=== PATIENT | female | born 2005 | race Two or more races ===

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

== ENCOUNTER 2024-09-22 16:09 | Inpatient (IN) | payer BC ==
[2024-09-22] MEDS: LACTATED RINGERS 1,000 ML IV SCH (16:15)
[2024-09-22] MEDS: LIDOCAINE 0.5% (PF) 5 MG/ML (50 ML SDV) SQ PRN (16:35)
[2024-09-22] MEDS ORDERED: OXYTOCIN 10 UNIT/ML 1 ML VIAL IM PRN (16:39)
[2024-09-22] MEDS ORDERED: CARBOPROST TROMETHAMINE 250 MCG/ML 1 ML AMP IM PRN (16:39)
[2024-09-22] MEDS ORDERED: TRANEXAMIC 1,000 MG/100ML-NACL 1,000 MG in EMPTY BAG 1 BAG IV PRN (16:39)
[2024-09-22] MEDS ORDERED: TERBUTALINE 1 MG/ML VIAL SQ PRN (16:39)
[2024-09-22] MEDS ORDERED: METHYLERGONOVINE 0.2 MG/ML 1 ML AMP IM PRN (16:39)
--- NOTE | 2024-09-22 16:55 | P.HPOB ---
History of Present Illness H&P Date: 09/22/24 Chief Complaint: Contractions Ms. Peterson is a 18 year old at 38 weeks and 0 days with EDC of 10-06-2024 by 18 week US who presents to labor in delivery completely dilated with ruptured membranes. SROM was at approximately 1500 with clear amniotic fluid. The has been complicated by limited care, heavy alcohol use in early prior to finding out she was , chlamydia infeciton on 06/25 (negative test of cure 08/19), and maternal anemia for which she has been on oral iron. work-up: blood type A positive, antibody screen negative, rubella non- immune, VDRL non-reactive, HBsAg negative, HIV negative, HCV non-reactive, gonorrhea negative, 1 hour GTT wnl, s/p TDap, GBS negative. Past Medical History Past Medical History: No Reported History History of Any Multi-Drug Resistant Organisms: None Reported Past Surgical History: No Surgical Hx Reported Smoking Status: Former smoker Medications and Allergies Home Medications Medication Instructions Recorded Confirmed Type Vit No.179/Iron/Folic 1 tab PO ONCE 08/19/24 09/22/24 History [ Tablet] Allergies Allergy/AdvReac Type Severity Reaction Status Date / Time No Known Allergies Allergy Verified 09/22/24 16:39 Exam Intake and Output 09/22/24 09/22/24 09/22/24 06:59 14:59 22:59 Other: Weight 90.718 kg Focused physical exam is performed. This is a healthy-appearing in no apparent distress. Breathing is non-labored. Abdomen is gravid and non-tender. Cervical exam is 10/100/+1 with clear amniotic fluid noted. Extremities non- tender and non-edematous. heart tones are Category I and tocometer is graphing contractions every 2-4 minutes. Assessment and Plan Assessment: 18 year old at 38 weeks in active labor, completely dilated Plan: Admit, clear liquid diet, continuous EFM and tocometer, anticipate vaginal delivery
[2024-09-22] MEDS ORDERED: ZOLPIDEM 5 MG TAB PO PRN (16:57)
[2024-09-22] MEDS ORDERED: diphenhydrAMINE 50 MG/ML 1 ML VIAL IVP PRN ×2 (16:57)
[2024-09-22] MEDS ORDERED: SIMETHICONE 80 MG CHEWABLE PO PRN (16:57)
[2024-09-22] MEDS ORDERED: diphenhydrAMINE 25 MG CAP PO PRN (16:57)
[2024-09-22] MEDS ORDERED: HYDROCORTISONE 2.5% RECTAL CREAM 30 GM TUBE RECTAL PRN (16:57)
[2024-09-22] MEDS ORDERED: LANOLIN CREAM 1 GM TUBE TOPICAL PRN (16:57)
--- NOTE | 2024-09-22 16:57 | P.PROBDLV ---
Vaginal Delivery Note - . Vaginal Delivery Note: DATE OF SERVICE: 09/22/2024 PROCEDURE: Normal Vaginal Delivery ATTENDING: Dr. Hina Swan MD ESTIMATED BLOOD LOSS: 200 mL FINDINGS: VFI, Apgars 9/9. Weight 6 pounds and 4 ounces (2825 grams) PROCEDURE: Ms. Peterson is a 18 year old at 38 weeks presenting to labor and delivery in active labor. For further details, please review the admitting H&P. The patient was completely dilated at 1615. She pushed effectively with category I FHTs. A viable female infant was delivered at 1430 over an intact perineum. The was placed on the maternal abdomen and bulb suctioned. The was noted to be spontaneously crying. Cord was clamped and cut after a 60-second delay. The infant was handed off to the pediatric team. Placenta was delivered whole with gentle cord traction at 1635. Oxytocin was started to facilitate uterine tone. Uterine fundus was found to be firm and below the umbilicus upon fundal massage. Thorough examination of the cervix, vagina, periurethral area, and perineum revealed a superficial right labia minora laceration. This area was infiltrated with lidocaine and repaired with 3-0 Vicryl in a running fashion. The patient is stable and allowed to begin the bonding process.
[2024-09-22 17:04] LABS: Basophils # (A) 0.06 10*3/uL (0.00-0.10); Basophils % (A) 0.3 %; Eosinophils # (A) 0.03 10*3/uL (0.04-0.35); Eosinophils % (A) 0.2 %; HCT 31.1 % (37.2-46.3); HGB 10.3 g/dL (12.0-15.0); Lymphocytes # (A) 0.97 10*3/uL (0.90-5.00); Lymphocytes % (A) 5.5 %; MCH 27.3 pg (27.0-32.0); MCHC 33.1 g/dL (32.0-37.0); MCV 82.5 fL (80.0-97.0); Monocytes # (A) 0.60 10*3/uL (0.20-1.00); Monocytes % (A) 3.4 %; Neutrophils # (A) 15.95 10*3/uL (1.80-7.70); Neutrophils % (A) 90.0 %; Platelet Count 235 10*3/uL (140-440); RBC 3.77 10*6/uL (4.10-5.20); RDW 14.1 % (11.5-14.5); WBC 17.71 10*3/uL (4.50-10.00)
[2024-09-22] MEDS: OXYTOCIN 30 UNITS/500 ML NS 30 UNIT in SALINE 1 500ML.BAG IV SCH (17:06)
[2024-09-22] MEDS: BENZOCAINE/MENTHOL SPRAY 1 GM/SPRAY AEROSOL TOPICAL PRN (17:07)
[2024-09-22] MEDS: ACETAMINOPHEN TAB 500 MG TAB PO SCH (17:16)
[2024-09-22] MEDS: IBUPROFEN 800 MG TAB PO SCH (17:57)
[2024-09-22] MEDS: SENNOSIDES-DOCUSATE SODIUM 1 EACH TAB PO SCH (20:03)
[2024-09-23] MEDS: MEASLES-MUMPS-RUBELLA VACC/PF 0.5 ML VIAL SQ ONE (05:31)
[2024-09-23 06:50] LABS: Basophils # (A) 0.04 10*3/uL (0.00-0.10); Basophils % (A) 0.3 %; Eosinophils # (A) 0.09 10*3/uL (0.04-0.35); Eosinophils % (A) 0.7 %; HCT 28.3 % (37.2-46.3); HGB 9.3 g/dL (12.0-15.0); Lymphocytes # (A) 1.87 10*3/uL (0.90-5.00); Lymphocytes % (A) 14.1 %; MCH 27.0 pg (27.0-32.0); MCHC 32.9 g/dL (32.0-37.0); MCV 82.0 fL (80.0-97.0); Monocytes # (A) 0.61 10*3/uL (0.20-1.00); Monocytes % (A) 4.6 %; Neutrophils # (A) 10.64 10*3/uL (1.80-7.70); Neutrophils % (A) 80.0 %; Platelet Count 219 10*3/uL (140-440); RBC 3.45 10*6/uL (4.10-5.20); RDW 14.2 % (11.5-14.5); WBC 13.29 10*3/uL (4.50-10.00)
--- NOTE | 2024-09-23 08:45 | P.PNOBGVD ---
Subjective - Subjective Principal diagnosis: s/p Interval history: The patient is doing well this morning and had no acute events overnight. She has no complaints this morning. She reports minimal lochia, passing flatus, voiding without difficulty, ambulating, and eating/drinking without nausea or vomiting. She is her without difficulty. She denies chest pain, shortness of breathing, fevers, or chills overnight. She denies pain or swelling in the legs. Objective - Latest Vital Signs Latest vital signs: Vital Signs Temp Pulse Resp BP Pulse Ox 09/23/24 04:00 77 16 118/76 09/23/24 00:00 88 16 126/66 09/22/24 18:53 97.6 F 90 16 131/61 09/22/24 18:38 93 16 129/62 09/22/24 18:23 96 16 130/60 09/22/24 18:08 83 16 135/71 09/22/24 17:53 90 16 136/76 09/22/24 17:38 89 16 133/68 09/22/24 17:23 100 16 125/74 09/22/24 17:08 95 16 142/76 09/22/24 16:53 97.8 F 96 16 136/71 09/22/24 16:15 97.8 F 82 20 138/70 100 Intake and Output 09/22/24 09/23/24 09/23/24 22:59 06:59 14:59 Intake Total 200 Output Total 390 Balance -190 Intake: IV 200 Output: Output, Quantitative 390 Blood Loss Other: # Voids 1 3 Weight 90.718 kg - Exam Extremities: Present: normal Abdomen: Present: normal appearance, soft Uterus: Present: normal, firm - Labs Labs: Abnormal Lab Results - Last 24 Hours (Table) 09/22/24 09/23/24 Range/Units 16:50 06:11 WBC 17.71 H 13.29 H (4.50-10.00) 10*3/uL RBC 3.77 L 3.45 L (4.10-5.20) 10*6/uL Hgb 10.3 L 9.3 L (12.0-15.0) g/dL Hct 31.1 L 28.3 L (37.2-46.3) % Immature Gran # 0.10 H (0.00-0.04) 10*3/uL Neutrophils # 15.95 H 10.64 H (1.80-7.70) 10*3/uL Eosinophils # 0.03 L (0.04-0.35) 10*3/uL Assessment and Plan Assessment: 18 year old now PPD#1 s/p Plan: 1. . Patient meeting milestones appropriately. 2. Viable female infant. Doing well at bedside. Dispo: Anticipate discharge home tomorrow
[2024-09-23] MEDS ORDERED: IBUPROFEN 800 MG TAB PO SCH (17:15)
[2024-09-23 23:42] VITALS: RESP 16; TEMP 98
[2024-09-24 08:29] VITALS: BP 109/70; PULSE 86
--- NOTE | 2024-09-24 08:56 | P.DS ---
Providers Date of admission: 09/22/24 16:15 Expected date of discharge: 09/24/24 Attending physician: Hina Swan MD Primary care physician: Hina Swan MD Hospital Course: Ms. Peterson is a 18 year old now PPD#2 s/p . The patient is doing well this morning and had no acute events overnight. She has no complaints this morning. She reports minimal lochia, passing flatus, voiding without difficulty, ambulating, and eating/drinking without nausea or vomiting. Infant doing well at bedside. She denies chest pain, shortness of breathing, fevers, or chills overnight. She denies pain or swelling in the legs. restrictions are reviewed with the patient including pelvic rest for 6 weeks. The patient is encouraged to call the office if she experiences any heavy bleeding, foul- smelling discharge, breast complaints, or any if she has any other concerns. She will follow up in the office with in 6 weeks for exam. All questions are answered. Patient Condition at Discharge: Good Plan - Discharge Summary New Discharge Prescriptions: New Docusate [Colace] 100 mg PO BID PRN #60 capsule PRN Reason: Constipation Ibuprofen [Motrin] 600 mg PO Q6HR PRN #30 tab PRN Reason: Mild Pain (Scale 1 To 3) Acetaminophen Tab [Tylenol] 650 mg PO Q6H PRN #30 tab PRN Reason: Mild Pain (Scale 1 To 3) No Action Vit No.179/Iron/Folic [ Tablet] 1 tab PO ONCE Discharge Medication List Vit No.179/Iron/Folic [ Tablet] 1 tab PO ONCE 08/19/24 [History] Acetaminophen Tab [Tylenol] 650 mg PO Q6H PRN #30 tab 09/24/24 [Rx] Docusate [Colace] 100 mg PO BID PRN #60 capsule 09/24/24 [Rx] Ibuprofen [Motrin] 600 mg PO Q6HR PRN #30 tab 09/24/24 [Rx] Follow up Appointment(s)/Referral(s): Hina Swan MD [Primary Care Provider] - 11/10/24 1:15 pm Activity/Diet/Wound Care/Special Instructions: Instructions 1. Do not begin any exercise program for 3 weeks. 2. Do not resume sexual relations for 6 weeks or longer if uncomfortable. 3. You may take tub baths or showers at any time. 4. You may use tampons if desired after 6 weeks. 5. Keep any areas repaired with stitches clean and dry. 6. If you are not nursing, wear a good fitting, supportive bra during the day and limit fluid intake for at least 1 week to prevent breast engorgement. 7. Call the office, , within the next week to make appointment for your 6 week checkup if it has not already been made. 8. Report any of the following occurrences to the doctor promptly: a. Heavy, excessive bleeding b. Chills, fever c. Burning or frequency of urination d. Pain or redness and breasts if nursing e. Increasing pain or swelling of vulva (stitches). In addition to the above instructions, the following additional should be followed: 1. No heavy lifting or straining (exercising) until after 6 week checkup. 2. Keep abdominal incision clean and dry: You may wear a dressing if more comfortable. 3. Make office appointment for 2 weeks after delivery date. Discharge Disposition: HOME SELF-CARE
== END 2024-09-24 11:59 | disposition home or self-care (01) | DRG 807 ==
LOC: FBPOP 16:09 → 4FBP 16:15
PROVIDERS: ADMIT Obstetrics & Gynecology; ATTEND Obstetrics & Gynecology
PROC: 10E0XZZ Delivery of Products of Conception, External Approach (ICD-10-PCS; principal; 2024-09-22)
PROC: 0UQMXZZ Repair Vulva, External Approach (ICD-10-PCS; principal; 2024-09-22)
DX: O99.02 Anemia complicating childbirth (principal); O70.0 First degree perineal laceration during delivery; Z3A.38 38 weeks gestation of pregnancy; Z87.891 Personal history of nicotine dependence; Z37.0 Single live birth
CPT/HCPCS: 85025; 86850; 86900; 86901; 90707